=== PATIENT | female | born 1960 | race Caucasian/White ===

== ENCOUNTER → 2019-09-29 | Day surgery (SDC) | payer OTHER ==
[2019-09-27 16:26] LABS: BASOPHILS # (AUTO) 0.1 (0.0-0.1); BASOPHILS % 0.5 % (0.0-1.0); EOSINOPHILS # (AUTO) 0.1 (0.0-0.4); EOSINOPHILS % 0.9 % (0.0-6.0); HEMATOCRIT 44.5 % (34.2-44.1); HEMOGLOBIN 14.6 g/dL (12.0-16.0); LYMPHOCYTES # (AUTO) 4.2 (1.0-3.2); LYMPHOCYTES % 34.3 % (18.0-39.1); MEAN CORPUSCULAR HEMOGLOBIN 31.4 pg (28-32); MEAN CORPUSCULAR HGB CONC 32.8 g/dL (31-35); MEAN CORPUSCULAR VOLUME 95.7 fL (81-99); MONOCYTES % 8.3 % (4.4-11.3); NEUTROPHILS # (AUTO) 6.8 (2.1-6.9); NEUTROPHILS % 55.6 % (38.7-80.0); PLATELET COUNT 383 x10e3/uL (140-360); RED BLOOD COUNT 4.65 x10e6/uL (3.6-5.1); RED CELL DISTRIBUTION WIDTH 12.4 % (11.7-14.4)
[~2019-09-29] MED LIST: ACETAMINOPHEN 1000 MG/100 ML IV ONE; AMBIEN5 MG PO; BUPIVACAINE HCL 0.5% INJ 30 ML VIAL INJ ONE; CLINDAMYCIN PHOS 900MG/ 50ML 50 ML IV ONE; DEXAMETHASONE SOD PHOS INJ 4 MG/ML VIAL ONE; FENTANYL CITRATE/PF 100MCG/2 ML INJ ONE; GABAPENTIN300 MG PO; KETOROLAC TROMETHAMINE 30 MG/ML VIAL ONE; LIDOCAINE HCL 2% LOCAL INJ 5 ML SDV VIAL INJ ONE; MIDAZOLAM HCL 2 MG/2 ML VIAL ONE; NEOSTIGMINE 1 MG/ML 10ML VIAL ONE; NORCO 10-325 T1 EACH PO; ONDANSETRON HCL INJ 2MG/ML 2ML 2 MG/ML VIAL ONE; PROPOFOL IV EMULSION 10 MG/ML 20 ML VIAL ONE; SEVOFLURANE INHAL SOLN 250 ML PEN BTL ONE; ZETIA10 MG PO
--- OUTSIDE RECORDS SUMMARY | 2019-09-29 06:47 | XMS REPORT ---
Author Author [facility] Address Unknown Phone Unavailable Care Team Providers Care Operations Research Scientist Name Role Phone Unavailable Unavailable Problems This patient has no known problems. Allergies, Adverse Reactions, Alerts This patient has no known allergies or adverse reactions. Medications This patient has no known medications.
--- OUTSIDE RECORDS SUMMARY | 2019-09-29 06:47 | XMS REPORT | Summary of Care ---
Author Author [facility] - Health Organization [facility] - Health Address Unknown Phone Unavailable Care Team Providers Care Steam Gigger Name Role Phone Pcp, Patient Does Not Have A PCP Reason for Visit * Reason Comments Follow-up Encounter Details Care Team Description Date Type Department Marybeth Brown, LEGAL ADMINISTRATOR [address] [place] [address] Neoplasm of uncertain behavior of skin of nose (Primary Dx); Neoplasm of uncertain behavior of skin of forearm; Family history of melanoma; History of nonmelanoma skin cancer 04/17/[address] [facility] [address] [place] [address] Allergies Comments Active Allergy Reactions Severity Noted Date Amoxicillin-Pot Itching, Rash 06/10/2011 Clavulanate documented as of this encounter (statuses as of 04/17/2019) Medications End Date Status Medication Sig Dispensed Refills Start Date Active ZOLPIDEM TARTRATE (AMBIEN Take by 0 ORAL) mouth. Active ROSUVASTATIN CALCIUM Take by 0 (CRESTOR ORAL) mouth. Active fluticasone (FLONASE) 50 Use 2 Sprays 0 mcg/Actuation nasal in each sprayIndications: nostril Dysfunction of eustachian daily. tube Active ciprofloxacin-dexamethaso Place 4 Drops 1 Bottle 3 ne (CIPRODEX) 0.3-0.1 % in left ear 2 1 otic dropsIndications: (two) times ETD (eustachian tube daily. X 10 dysfunction), Otorrhea, days unspecified Active hydrocodone-acetaminophen Take 1 Tab by 30 Tab 0 12/29/201 (LORTAB) 5-500 mg per mouth every 6 1 tabletIndications: ETD (six) hours (eustachian tube as needed for dysfunction), Otorrhea, Pain (pain). unspecified Active loratadine-pseudoephedrin Take 1 Tab by 0 e (CLARITIN-D 24 HOUR) mouth daily. 10-240 mg per 24 hr tablet Active benzonatate (TESSALON Take 1 Cap by 90 Cap 1 PERLES) 100 mg mouth 3 2 capsuleIndications: Cough (three) times daily as needed for Cough. Active brompheniramine-pseudoeph Take 5 mL by 118 mL 0 edrine-DM (DIMETANE-DX) mouth 4 2 2-30-10 mg/5 mL syrup (four) times daily as needed for Congestion/Al lergies and Cough. Active GABAPENTIN ORAL Take by 0 mouth. Active ATORVASTATIN CALCIUM Take by 0 (ATORVASTATIN ORAL) mouth. Active triamcinolone acetonide Apply to 80 g 1 0.1 % creamIndications: area(s) 2 9 Irritant contact (two) times dermatitis due to other daily. agents documented as of this encounter (statuses as of 04/17/2019) Active Problems No known active problemsdocumented as of this encounter (statuses as of 04/17/2019) Social History Date Tobacco Use Types Packs/Day Years Used Never Smoker Smokeless Tobacco: Never Used Sex Assigned at Date Recorded Not on file Industry Job Start Date Occupation Not on file Not on file Not on file Travel End Travel History Travel Start No recent travel history available. documented as of this encounter Last Filed Vital Signs Not on filedocumented in this encounter Progress Notes * Marybeth Brown FNP - 04/17/2019 9:00 AM CDT Marcy Easton is a 58 year old female who does not have a problem list on file.. Cc: BCC f/u, ski lesions HPI Marcy Easton is a 58 year old female who presents for follow-up of BCC to her rig ht forehead, excised by Dr. Lee in September 2018. She reports area has healed ve ry well and she is pleased with results. She also points out new reddish spot to her nasal tip, present only a few months. It is asymptomatic without prior feliciano tment. Also points out brown spot to her right forearm, present years. She does not think it has grown and is asymptomatic. She reports family history of melano ma. She states she likes to be in the sun and does not wear sunscreen. No other skin concerns voiced today. Histories Marcy has no past medical history on file. She has no past surgical history on file. Her family history is not on file. She reports that she has never smoked. She has never used smokeless tobacco. Allergies Marcy is allergic to augmentin [amoxicillin-pot clavulanate]. Medications Marcy has a current medication list which includes the following prescription(s ): triamcinolone acetonide, atorvastatin calcium, gabapentin, brompheniramine-ps eudoephedrine-dm, benzonatate, loratadine-pseudoephedrine, ciprofloxacin-dexamet hasone, hydrocodone-acetaminophen, fluticasone propionate, rosuvastatin calcium, and zolpidem tartrate. Review of Systems Itching (Denies) Pain (Affirms) Bleeding (Denies) Physical Exam There were no vitals taken for this visit. FACE: Positive EYES: Negative NOSE: Negative EARS: Negative SCALP: Negative NECK: Negative CHEST: Negative ABDOMEN: Negative BACK: Negative RIGHT ARM: See image LEFT ARM: Positive Constitutional: Well appearing and well nourished. Respiratory: Nonlabored breathing Psychiatric: Normal affect and mood. (-)=Negative,(+)=Positive Actinic Keratosis (A): erythematous scaling papules Donis Hemaniogioma (CH): smooth red and purple papules Dermatitis Erythema (DE): mild to moderate erythema and scaling Dermatitis Lichenified (DL): lichenification and thickening Dermatitis Weeping (DW): weeping and excoriation Inflamed Seborrheic Keratosis (ISK): inflamed warty brown papules and plaques Millium (ML): Small white cystic papule Molluscum Contagiosum (MC): umbilicated papule Nevus Macular (NM): well circumsc ribed evenly pigmented macule Nevus Papular (EDUCATION ADMINISTRATIVE ASSISTANT): well circumscribed evenly pigmented papule Psoriasis Circumscribed (PC): well circumscribed erythema and scaling Psoriasis Diffuse (PD): diffuse patches of erythema and scaling Seborrheic Keratosis (SK): verrucous brown papules and plaques Scar (SR): cicatricial change Verruca Vulgarus (W): warty hyperkeratotic papule Assessment/Plan 1. History of BCC to right lateral forehead Comment: s/p excision September 2018 Plan: - Well healed scar(s), no sign of recurrence - Counseled patient about sunscreen/sun avoidance/sun protection. Self-skin exam s encouraged. Discussed the ABCDE's of melanoma. Discussed need for regular f/u 2. Neoplasm of uncertain behavior of skin of nose (primary encounter diagnosis) Comment: angiofibroma vs other Plan: - Benign appearing - Lesion measured and diagrammed; will recheck at f/u and monitor 3. Neoplasm of uncertain behavior of skin of forearm Comment: right forearm- lentigo vs SK vs LM Plan: - Benign appearing - LN2 offered - Will recheck at f/u and biopsy if not resolved 4. Family history of melanoma Plan: - Discussed ABCD's - instructed to monitor for any change - instructed to do regular skin exams - Discussed sun avoidance and protection. RTC 3 months to recheck #2-3 DONALD Caro 04/17/2019 9:19 AM documented in this encounter Plan of Treatment Care Team Description Date Type Specialty Marybeth Brown FNP [address] [place] [address] 07/17/2019 Office Visit Dermatology Health Maintenance Due Date Last Done Comments HEPATITIS C (HCV) SCREEN 1960 PNEUMOCOCCAL 0-64 YEARS 1966 COMBINED SERIES (1 of 3 - PCV13) DTaP,Tdap,and Td Vaccines 12/18/1979 (1 - Tdap) PAP SMEAR 1981 MAMMOGRAM 2000 COLONOSCOPY 2010 Zoster Recombinant 2010 Vaccine (SHINGRIX) (1 of 2) INFLUENZA VACCINE (#1) 2019 documented as of this encounter Results Not on filedocumented in this encounter Visit Diagnoses Diagnosis Neoplasm of uncertain behavior of skin of nose - Primary Neoplasm of uncertain behavior of skin of forearm Family history of melanoma Family history of other specified malignant neoplasm History of nonmelanoma skin cancer Personal history of other malignant neoplasm of skin documented in this encounter Insurance Type Payer Benefit Subscriber ID Effective Phone Address Plan / Dates Group PPO EVA HUFFMAN [id number] 2000-Ghassan levine documented as of this encounter
--- OUTSIDE RECORDS SUMMARY | 2019-09-29 06:47 | XMS REPORT | Summary of Care ---
Author Author [facility] - Health Organization [facility] - Health Address Unknown Phone Unavailable Care Team Providers Care Reel Repairer Name Role Phone Pcp, Patient Does Not Have A PCP Reason for Visit * Reason Comments Follow-up Encounter Details Care Team Description Date Type Department Marybeth Brown, FLOOR WORKER WELL SERVICE [address] [place] [address] Other seborrheic keratosis (Primary Dx); Spider angioma; Acrochordon; History of nonmelanoma skin cancer; Verruca vulgaris; Family history of melanoma 09/14/2019 Office Visit [facility], [place] [address] [place] [address] Allergies Comments Active Allergy Reactions Severity Noted Date Amoxicillin-Pot Itching, Rash 06/10/2011 Clavulanate documented as of this encounter (statuses as of 09/14/2019) Medications End Date Status Medication Sig Dispensed [...] Take 1 Tab by 30 Tab 0 (LORTAB) 5-500 mg per mouth every 6 [...] as of this encounter (statuses as of 09/14/2019) Active Problems No known active problemsdocumented as of this encounter (statuses as of 09/14/2019) Social History Date Tobacco Use Types Packs/Day [...] Progress Notes * Marybeth Brown FNP - 09/14/2019 8:40 AM ROOF BOLTER Marcy Easton is a 58 year old female who does not have a problem list on file.. Cc: BCC f/u, skin lesions HPI Marcy Easton is a 58 year old female who presents for follow-up of BCC to her rig ht forehead, excised by Dr. Lee in September 2018. She reports area has healed ve ry well and she is pleased with results. Today she does not note any new lesions that are growing, changing or bothersome. She is not currently using any medica tions for her skin and and she denies pain, bleeding and pruritis. She reports f amily history of melanoma. She states she likes to be in the sun and does not we ar sunscreen. No other skin concerns voiced today. Histories Marcy has no past medical history on file. She has a past surgical history that includes radical hysterectomy. Her family history is not on file. [...] this visit. FACE: Positive EYES: Negative NOSE: Positive EARS: Negative SCALP: Negative NECK: Negative CHEST: Negative ABDOMEN: Negative BACK: Positive RIGHT ARM: See image LEFT ARM: Positive [...] circumsc ribed evenly pigmented macule Nevus Papular (SCHOOL CAFETERIA COOK): well circumscribed evenly pigmented papule Psoriasis Circumscribed [...] melanoma. Discussed need for regular f/u 2. Acrochordons - Benign, reassurance provided 3. Seborrheic keratoses - Benign appearing, reassurance given. - Recheck lesion on chest at next visit 4. Spider Hemangioma - reassured of benign nature of condition 5. Verruca vulgaris - Etiology and treatments reviewed - Verbal consent obtained - Treated with LN2 x 1. Risks & SE discussed (pain, blistering, scar, etc) - In 1 week, start OTC salicylic acid QHS with occlusion, and file down prn 6. Family history of melanoma Plan: - Discussed ABCD's - instructed to monitor for any change - instructed to do regular skin exams - Discussed sun avoidance and protection. RTC 6 months ICy, tori scribing for, and in the presence of, DONALD Colon ; DONALD Caro performed and/or ordered the service s described here-in. Cy Willis 09/14/2019 08:49 IMarybeth FNP, personally performed the services described in t his documentation , as scribed by, Cy Willis in my presence and it is both accurate and complete. DONALD Caro September 14, 2019, 9:16 AM BOLTER documented in this encounter Plan of Treatment Health Maintenance Due Date Last Done Comments HEPATITIS C (HCV) SCREEN 1960 PNEUMOCOCCAL 0-64 YEARS 1966 COMBINED SERIES (1 of 3 - PCV13) DTaP,Tdap,and Td Vaccines 12/18/1971 (1 - Tdap) PAP SMEAR 1981 COLONOSCOPY 2010 Zoster Recombinant 2010 Vaccine (SHINGRIX) (1 of 2) INFLUENZA VACCINE (#1) 2019 Breast Cancer Screening 07/03/2020 07/03/2019 (MAMMOGRAM) documented as of this encounter Results Not on filedocumented in this encounter Visit Diagnoses Diagnosis Other seborrheic keratosis - Primary Spider angioma Nevus, non-neoplastic Acrochordon Unspecified hypertrophic and atrophic condition of skin History of nonmelanoma skin cancer Personal history of other malignant neoplasm of skin Verruca vulgaris Viral warts, unspecified Family history of melanoma Family history of other specified malignant neoplasm documented in this encounter Insurance Type Payer Benefit Subscriber ID Effective Phone Address Plan / Dates Group PPO EVA HUFFMAN [id number] 2000-P SERGEY levine documented as of this encounter
--- OUTSIDE RECORDS SUMMARY | 2019-09-29 06:47 | XMS REPORT | Summary of Care ---
Author Author [facility] - Health Organization [facility] - Health Address Unknown Phone Unavailable Care Team Providers Care Tile Roofer Name Role Phone Pcp, Patient Does Not Have A PCP Reason for Visit * Reason Comments Follow-up Encounter Details Care Team Description Date Type Department Marybeth Brown, BRIDGE CREW MEMBER [address] [place] [address] Neoplasm of uncertain behavior of skin of nose (Primary Dx); Neoplasm of uncertain behavior of skin of forearm; Family history of melanoma; History of nonmelanoma skin cancer 04/17/2019 Office Visit [facility] [address] [place] [address] Allergies Comments Active Allergy Reactions [...] circumsc ribed evenly pigmented macule Nevus Papular (APPRENTICE INSTRUMENT TECHNICIAN): well circumscribed evenly pigmented papule Psoriasis Circumscribed [...] Type Specialty Marybeth Brown FNP [address] [place] [address] 07/17/2019 Office Visit Dermatology Health Maintenance Due [...] Plan / Dates Group PPO EVA HUFFMAN [id number] 2000-Ghassan levine documented as of this encounter
--- OUTSIDE RECORDS SUMMARY | 2019-09-29 06:47 | XMS REPORT | Summary of Care ---
Author Author [facility] - Health Organization [facility] - Health Address Unknown Phone Unavailable Care Team Providers Care Weed Thinner Name Role Phone Pcp, Patient Does Not Have A PCP Reason for Visit * Reason Comments Follow-up Encounter Details Care Team Description Date Type Department Marybeth Brown, BUSINESS INTEGRATION MANAGER [address] [place] [address] Other seborrheic keratosis (Primary Dx); Spider angioma; Acrochordon; History of nonmelanoma skin cancer; Verruca vulgaris; Family history of melanoma 09/14/2019 Office Visit [facility]ermatology, [place] [address] [place] [address] Allergies Comments Active Allergy Reactions [...] Marybeth Brown FNP - 09/14/2019 8:40 AM CHEESE GRADER Marcy Easton is a 58 year old [...] circumsc ribed evenly pigmented macule Nevus Papular (TUBE CARRIER): well circumscribed evenly pigmented papule Psoriasis Circumscribed [...] DONALD Caro September 14, 2019, 9:16 AM SE GRADER documented in this encounter Plan of Treatment [...] Plan / Dates Group PPO EVA HUFFMAN [id number] 2000-P SERGEY levine documented as of this encounter
[2019-09-29 07:34] LABS: BASOPHILS # (AUTO) 0.1 (0.0-0.1); BASOPHILS % 0.7 % (0.0-1.0); EOSINOPHILS # (AUTO) 0.2 (0.0-0.4); EOSINOPHILS % 1.7 % (0.0-6.0); HEMATOCRIT 44.8 % (34.2-44.1); HEMOGLOBIN 14.9 g/dL (12.0-16.0); LYMPHOCYTES % 31.7 % (18.0-39.1); MEAN CORPUSCULAR HEMOGLOBIN 31.8 pg (28-32); MEAN CORPUSCULAR HGB CONC 33.3 g/dL (31-35); MEAN CORPUSCULAR VOLUME 95.5 fL (81-99); MONOCYTES # (AUTO) 0.9 (0.2-0.8); MONOCYTES % 9.3 % (4.4-11.3); NEUTROPHILS # (AUTO) 5.4 (2.1-6.9); NEUTROPHILS % 56.3 % (38.7-80.0); PLATELET COUNT 351 x10e3/uL (140-360); RED BLOOD COUNT 4.69 x10e6/uL (3.6-5.1); RED CELL DISTRIBUTION WIDTH 12.4 % (11.7-14.4)
[2019-09-29 13:20] VITALS: BP 109/79
--- NOTE | 2019-10-04 20:39 | Operative Report ---
DATE OF PROCEDURE: 09/29/2019 SURGEON: Patrick Jasmine DPM ROOM NUMBER: [facility]. PREOPERATIVE DIAGNOSES: Plantar flexed second metatarsal, left foot; hammertoe, second digit, left foot. ANESTHESIA: General endotracheal. HEMOSTASIS: A left thigh tourniquet at 350 mmHg. PROCEDURE IN DETAIL: The patient was taken to the operating room in a mildly sedated state, placed on the operating table in supine position. Following induction of general anesthetic, the left lower extremity was elevated to 60 degrees to exsanguinate before inflating the pneumatic tourniquet to 350 mmHg to create hemostasis. Left lower extremity was placed on the operating table prior to performing following procedure. Procedure #1: Elevating osteotomy of the second metatarsal of the left foot. Linear longitudinal incision was made overlying the dorsal medial aspect of the second metatarsophalangeal joint of the left foot. The second metatarsal head was noted to be plantar flexed and elongated relative to the parabola. A McGlamry elevator was used to free the surrounding and constricting soft tissues and the head of the second metatarsal was delivered in the surgical site. A Laci osteotomy was performed, which allowed for a proximal sectioning of the second metatarsal head and relative elevation. A 2.0 screw was advanced to stabilize the bone. Excellent fixation was noted. The area was irrigated with copious amounts of sterile saline solution. Dorsal bone remodeling was performed and capsular structure was closed with closure of the surrounding soft tissue envelope with 3-0 Vicryl, 4-0 Vicryl, 4-0 nylon. Attention was then directed to the second digit where a hammertoe was present. Linear longitudinal incision was made overlying the head of the proximal phalanx of the second digit, left foot. The incision was deepened via sharp and blunt dissection down to the level of dorsal capsular structure. Care was taken to identify and retract all vital structures encountered. Transverse tenotomy was performed and the head of the second metatarsal was delivered in the surgical site utilizing a #15 blade. The head of the second metatarsal and the base of the intermediate phalanx were both remodeled utilizing the two-step cup and cone reamer set. This allowed for excellent fixation and dialed in appropriate dorsal plantar positioning. The digit was then fused utilizing the two-step implant. The area was irrigated with copious amounts of sterile saline solution. Deep closure was 3-0 Vicryl, capsular repair and tendon repair 3-0 Vicryl, skin closure 4-0 nylon. The areas of surgery were then blocked with 0.5 Marcaine Decadron LA. Release of the pneumatic thigh tourniquet showed a normal hyperemic flush to all digits of the left foot. The patient left the operating room with vital signs stable in apparent satisfactory condition, having tolerated both anesthetic and procedure very well. KADEEM Cole/RAYO /[id number]
== END | disposition home or self-care (01) ==
LOC: OR 06:44
PROVIDERS: ATTEND Podiatrist Foot Surgery
DX: M21.272 Flexion deformity, left ankle and toes (principal); M20.42 Other hammer toe(s) (acquired), left foot; F41.9 Anxiety disorder, unspecified; Z88.0 Allergy status to penicillin; Z01.810 Encounter for preprocedural cardiovascular examination; Z01.812 Encounter for preprocedural laboratory examination; Z87.891 Personal history of nicotine dependence
CPT/HCPCS: 28285; 28308; 36415 ×2; 85025 ×2; 93005 ×2; C1713 ×4; J0131; J1100; J1885; J2001; J2250; J2405; J2704; J2710; J3010

== ENCOUNTER → 2019-11-24 | Day surgery (SDC) | payer OTHER ==
[~2019-11-24] MED LIST changes: -CLINDAMYCIN PHOS 900MG/ 50ML 50 ML IV ONE; +VANCOMYCIN 1GM/NS 250 ML 250 ML ONE
[2019-11-24 10:50] VITALS: BP 116/64
--- NOTE | 2019-11-25 19:03 | Operative Report ---
DATE OF PROCEDURE: 11/24/2019 SURGEON: Patrick Jasmine DPM ROOM NUMBER: [facility]. PREOPERATIVE DIAGNOSES: 1. Plantar flexed second metatarsal on the right foot, arthrodesis, second digit, right foot. 2. Rigidly contracted hammertoe with subluxation of the second digit on the right foot. 3. Intractable pain. ANESTHESIA: General endotracheal. HEMOSTASIS: A right thigh tourniquet at 350 mmHg. PROCEDURE LIST: 1. Elevating osteotomy of the second metatarsal of the right foot. 2. Arthrodesis of the second digit, right foot. 3. Marcaine and steroid block. PROCEDURE IN DETAIL: The patient was taken to the operating room in a mildly sedated state and placed on the operating table in supine position. Following induction of general anesthetic, the right lower extremity was elevated to 60 degrees to exsanguinate before inflating the pneumatic thigh tourniquet to 350 mmHg to create hemostasis. The right lower extremity was placed on the operating table prior to performing following procedure. Procedure #1: Elevating osteotomy of the second metatarsal, right foot. An approximate 4 cm dorsal linear incision was made overlying the dorsal aspect of second metatarsal of the right foot. Incision was deepened via sharp and blunt dissection down to the level of dorsal capsular structure. Care was taken to identify and retract all vital structures encountered. The head of the second metatarsal was delivered in the surgical site and the head was noted to be plantar flexed, thus creating intractable pain due to malalignment and subluxation of the second metatarsophalangeal joint. The head of the second metatarsal was then treated with a through and through osteotomy Laci-type osteotomy from distal dorsal to plantar proximal. This allowed for relative retraction dorsally and proximally. The proximal segment which was then impacted and stabilized with 2.4 cortical bone screw cannulated. The area was then further remodeled with an oscillating saw and rongeur. The area was irrigated with copious amounts of sterile saline solution. Deep closure with 3-0 Vicryl, skin closure with 4-0 nylon. Attention was then directed to the second digit, which was significantly contracted dorsally overlying the second head of the proximal phalanx. The incision was deepened via sharp and blunt dissection. A transverse tenotomy was performed, which allowed for deliverance of the head of the proximal phalanx into the surgical site. The head was then remodeled utilizing a two-step implant from [employer]. The head was remodeled with a cup and cone reamer as was the base of the intermediate phalanx. The appropriate alignment and abutment were noted and an insertion of two-step implant was performed. This allowed for compression of the two bone segments together, thus creating a better alignment and positioning of the second digit relative to the second metatarsal head, which had been previously shortened. That area was then irrigated with copious amounts of sterile saline solution. Repair of the extensor tendon was then performed. This was all done under fluoroscopy to ensure proper alignment. Deep closure with 3-0 Vicryl and skin closure 4-0 nylon. The areas of surgery were all blocked with 0.5 Marcaine, Decadron LA. Release of the pneumatic thigh tourniquet showed a normal hyperemic flush to all digits of the right foot. The patient left the operating room with vital signs stable in apparent satisfactory condition, having tolerated both anesthetic and procedure very well. KADEEM Cole/RAYO /[id number]
== END | disposition home or self-care (01) ==
LOC: OR 07:17
PROVIDERS: ATTEND Podiatrist Foot Surgery
DX: M20.41 Other hammer toe(s) (acquired), right foot (principal); S93.144A Subluxation of metatarsophalangeal joint of right lesser toe(s), initial encounter; M24.574 Contracture, right foot; E78.5 Hyperlipidemia, unspecified; F17.200 Nicotine dependence, unspecified, uncomplicated; X58.XXXA Exposure to other specified factors, initial encounter; Z88.0 Allergy status to penicillin
CPT/HCPCS: 28285; 28308; C1713 ×4; J0131; J1100; J1885; J2001; J2250; J2405; J2704; J3010; J3370; 76000; J2710